=== PATIENT | male | born 1985 | race American Indian/Alaskan Native ===

== ENCOUNTER 2021-01-03 18:50 | Emergency (ER) | payer SELFPAY ==
[2021-01-03] MEDS ORDERED: Ondansetron 4 MG Tab.DIS PO ONE (18:51)
[2021-01-03 19:38] VITALS: BP 117/92; PULSE 88
[2021-01-03] MEDS ORDERED: diphenhydrAMINE 50 MG/ML SDV IVPUSH ONE (20:40)
[2021-01-03] MEDS ORDERED: Ketorolac 30 MG/ML SDV IVPUSH ONE (20:40)
[2021-01-03] MEDS ORDERED: Ondansetron 4 MG/2 ML SDV IVPUSH ONE (20:41)
[2021-01-03] MEDS ORDERED: Sodium Chloride 0.9% 1,000 ML IV ONE (20:44)
--- NOTE | 2021-01-03 20:53 | EDM.PDOC ---
<YuePernell - Last Filed: 01/03/21 20:47> ED HPI GENERAL MEDICAL PROBLEM - General Chief Complaint: Headache Stated Complaint: MIGRAINE, Time Seen by Provider: 01/03/21 20:15 Source of Information: Reports: Patient History Limitations: Reports: No Limitations - History of Present Illness INITIAL COMMENTS - FREE TEXT/NARRATIVE: Patient is a 35 yo male that presents to the ED for 1 day history of headache. Patient reports a 8/10 frontal headache that started last night. No inciting event of trauma. Patient took some ibuprofen and tylenol which provided some relief and he was able to fall asleep around 0300 this morning. Headache returned when he woke up, tried more ibuprofen and tylenol and then presented to the ED when he could no longer take the pain. Associated with some nausea and vomiting when he tried to eat. Photophobia present. No history of migraines. He smokes cigarettes and marijuana. Occasional alcohol use, he had 3 beers last nig ht. He has no other complaints. Denies fever, chest pain, SOB, abdominal pain, radiating pain, numbness/tingling, paresthesias, or changes in bowel/bladder. 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 [No Known Home Meds] 10/10/14 [History] Past Medical History - Past Health History Medical/Surgical History: Denies Medical/Surgical History Respiratory History: Reports: Other (See Below) Other Respiratory History: deflated lung with chest tube - Infectious Disease History Infectious Disease History: Reports: Hepatitis C Social & Family History - Tobacco Use Tobacco Use Status *Q: Current Every Day Tobacco User Years of Tobacco use: 5 Packs/Tins Daily: 0.3 Second Hand Smoke Exposure: Yes - Caffeine Use Caffeine Use: Reports: Coffee, Soda - Alcohol Use Alcohol Use History: Yes - Recreational Drug Use Recreational Drug Use: No - Living Situation & Occupation Living situation: Reports: with Family Occupation: Employed ED ROS GENERAL - Review of Systems Review Of Systems: See Below Constitutional: Reports: Chills HEENT: Reports: No Symptoms Respiratory: Reports: No Symptoms Cardiovascular: Reports: No Symptoms Endocrine: Reports: No Symptoms GI/Abdominal: Reports: Vomiting : Reports: No Symptoms Musculoskeletal: Reports: No Symptoms Skin: Reports: No Symptoms Neurological: Reports: Headache Psychiatric: Reports: No Symptoms Hematologic/Lymphatic: Reports: No Symptoms - Physical Exam Exam: See Below Exam Limited By: No Limitations General Appearance: Alert, Moderate Distress Ears: Normal External Exam, Hearing Grossly Normal Nose: Normal Inspection, Normal Mucosa, No Blood Throat/Mouth: Normal Inspection, Normal Lips, Normal Teeth, Normal Gums, Normal Oropharynx, Normal Voice, No Airway Compromise Head Exam: Atraumatic, Normocephalic Neck: Normal Inspection, Supple, Non-Tender, Full Range of Motion Respiratory/Chest: No Respiratory Distress, Lungs Clear, Normal Breath Sounds, No Accessory Muscle Use, Chest Non-Tender Cardiovascular: Normal Peripheral Pulses, Regular Rate, Rhythm, No Edema, No Gallop, No JVD, No Murmur, No Rub GI/Abdominal: Normal Bowel Sounds, Soft, Non-Tender, No Organomegaly, No Distention, No Abnormal Bruit, No Mass Neuro Exam (Abbreviated): Alert, Oriented, Normal Cognition, No Motor/Sensory Deficits Extremities: Normal Inspection, Normal Range of Motion, Non-Tender, No Pedal Edema, Normal Capillary Refill Skin Exam: Warm, Dry, Intact, Normal Color Departure - Departure Disposition: Home, Self-Care 01 Clinical Impression: Headache Qualifiers: Headache type: unspecified Headache chronicity pattern: acute headache Intractability: not intractable Qualified Code(s): R51.9 - Headache, unspecified - Discharge Information Instructions: General Headache Without Cause, [id number] Forms: ED Department Discharge Additional Instructions: rest increase fluids avoid heat for prolonged periods tylenol 650mg alternate with ibuprofen 600mg every 4 hours as needed for discomfort follow up if sypmptoms worsen, weakness confusion zofran 4mg )DT one every 6 hours as needed for nausea #2 Sepsis Event Note (ED) - Evaluation Sepsis Screening Result: No Definite Risk <Mckayla Salas - Last Filed: 01/04/21 04:08> - Physical Exam Psychiatric: Flat Affect Course - Vital Signs Last Recorded V/S: Last Vital Signs Temp 96.2 F L 01/03/21 19:29 Pulse 88 01/03/21 19:29 Resp 20 01/03/21 19:29 BP 117/92 H 01/03/21 19:29 Pulse Ox 100 01/03/21 19:29 - Orders/Labs/Meds Orders: Active Orders 24 hr Category Date Time Status LYME DISEASE AB TOTAL IG EIA [REF] Stat Lab 01/03/21 20:45 Received [facility] [REF] Stat Lab 01/03/21 20:45 Received Labs: Laboratory Tests 01/03/21 01/03/21 Range/Units 20:45 20:45 WBC 15.4 H (5.0-10.0) 10^3/uL RBC 5.14 (4.6-6.2) 10^6/uL Hgb 15.7 (14.0-18.0) g/dL Hct 46.1 (40.0-54.0) % MCV 89.7 D (80-100) fL MCH 30.5 (27.0-34.0) pg MCHC 34.1 (33.0-35.0) g/dL Plt Count 302 (150-450) 10^3/uL Neut % (Auto) 87.2 H (42.2-75.2) % Lymph % (Auto) 6.6 L (20.5-50.1) % Giles % (Auto) 6.0 (2-8) % Eos % (Auto) 0.1 L (1.0-3.0) % Baso % (Auto) 0.1 (0.0-1.0) % Sodium 143 (136-145) mmol/L Potassium 4.0 (3.5-5.1) mmol/L Chloride 105 (98-107) mmol/L Carbon Dioxide 24 (21-32) mmol/L Anion Gap 18.0 H (7-13) mEq/L BUN 13 (7-18) mg/dL Creatinine 1.27 (0.70-1.30) mg/dL Est Cr Clr Drug Dosing 79.29 mL/min Estimated GFR (MDRD) > 60 BUN/Creatinine Ratio 10.2 (No establ ref range) Glucose 123 H (70-99) mg/dL Calcium 9.5 (8.5-10.1) mg/dL Total Bilirubin 1.1 H (0.2-1.0) mg/dL AST 26 (15-37) U/L ALT 47 (16-63) U/L Alkaline Phosphatase 76 (46-116) U/L Total Protein 8.2 (6.4-8.2) g/dL Albumin 3.9 (3.4-5.0) g/dL Globulin 4.3 Albumin/Globulin Ratio 0.9 Meds: Medications Discontinued Medications Generic Name Dose Route Start Last Admin Trade Name Rupert PRN Reason Stop Dose Admin Diphenhydramine HCl 50 mg 01/03/21 20:40 01/03/21 20:52 Diphenhydramine 50 Mg/Ml Sdv IVPUSH 01/03/21 20:41 50 mg ONETIME ONE Administration Sodium Chloride 1,000 mls @ 9,999 mls/hr 01/03/21 20:44 01/03/21 20:53 Normal Saline IV 01/03/21 20:49 9,999 mls/hr .BOLUS ONE Administration Ketorolac Tromethamine 30 mg 01/03/21 20:40 01/03/21 20:51 Ketorolac 30 Mg/Ml Sdv IVPUSH 01/03/21 20:41 30 mg ONETIME ONE Administration Ondansetron HCl 4 mg 01/03/21 20:41 01/03/21 20:51 Ondansetron 4 Mg/2 Ml Sdv IVPUSH 01/03/21 20:42 4 mg ONETIME ONE Administration Ondansetron HCl Confirm 01/03/21 22:30 01/03/21 22:34 Ondansetron 4 Mg Tab.Dis Administered 01/03/21 22:31 Not Given Dose 8 mg .ROUTE .STK-MED ONE - Re-Assessments/Exams Free Text/Narrative Re-Assessment/Exam: 01/03/21 22:15 I have examined the patient. I have discussed findings and treatment plan with resident. I agree with assessment plan and documentation. Departure - Departure Time of Disposition: 22:17 Condition: Good - Discharge Information *PRESCRIPTION DRUG MONITORING PROGRAM REVIEWED*: No *COPY OF PRESCRIPTION DRUG MONITORING REPORT IN PATIENT JIMMY: No Sepsis Event Note (ED) - Focused Exam Vital Signs: Vital Signs Temp Pulse Resp BP Pulse Ox 01/03/21 19:29 96.2 F L 88 20 117/92 H 100 - My Orders Last 24 Hours: My Active Orders 01/03/21 20:45 LYME DISEASE AB TOTAL IG EIA [REF] Stat [facility] [REF] Stat - Assessment/Plan Last 24 Hours: My Active Orders 01/03/21 20:45 LYME DISEASE AB TOTAL IG EIA [REF] Stat [facility] [REF] Stat
[2021-01-03 21:14] LABS: CHLORIDE,CL 105 mmol/L (98-107); SODIUM,NA 143 mmol/L (136-145)
--- NOTE | 2021-01-03 21:39 | CT ---
PROCEDURE INFORMATION: Exam: CT Head Without Contrast Exam date and time: 01/03/2021 9:11 PM Age: 35 years old Clinical indication: Pain; Headache; Migraine; Aura effect not specified TECHNIQUE: Imaging protocol: Computed tomography of the head without contrast. Radiation optimization: All CT scans at this facility use at least one of these dose optimization techniques: automated exposure control; mA and/or kV adjustment per patient size (includes targeted exams where dose is matched to clinical indication); or iterative reconstruction. COMPARISON: No relevant prior studies available. FINDINGS: Brain: No evidence for acute transcortical infarct. No mass effect or midline shift. No extra-axial collection. No acute intracranial hemorrhage. Basal cisterns are patent. Cerebral ventricles: No ventriculomegaly. Paranasal sinuses: Visualized sinuses are unremarkable. No fluid levels. Mastoid air cells: Visualized mastoid air cells are well aerated. Bones/joints: Unremarkable. No acute fracture. Soft tissues: Unremarkable. IMPRESSION: No hydrocephalus, acute intracranial hemorrhage, or mass effect.
[2021-01-03] MEDS ORDERED: Ondansetron 4 MG Tab.DIS ONE (22:30)
== END 2021-01-03 22:38 | disposition home or self-care (01) ==
LOC: DL.ED 18:50
DX: R51.9 Headache, unspecified (principal); Z72.0 Tobacco use
CPT/HCPCS: 36415; 70450; 80053; 85025; 86618; 86788; 93005; 96374; 96375; 99284; A9270; J1200; J1885; J2405; J7030; 99283

== ENCOUNTER 2023-11-18 13:45 | Inpatient (IN) | payer MEDICAID ==
[2023-11-18] MEDS ORDERED: LORazepam 2 MG/ML SDV IVPUSH PRN (13:57)
[2023-11-18] MEDS: GI Cocktail Oral Solution 30 ML PO ONE (14:03)
[2023-11-18 14:05] LABS: BASOPHILS PERCENT AUTO 0.1 % (0.0-1.0); EOSINOPHILS PERCENT AUTO 0.1 % (1.0-3.0); HEMATOCRIT 49.8 % (40.0-54.0); HEMOGLOBIN 16.9 g/dL (14.0-18.0); LYMPHOCYTES PERCENT AUTO 10.4 % (20.5-50.1); MEAN CORPUSCULAR HEMOGLOBIN 30.9 pg (27.0-34.0); MEAN CORPUSCULAR HGB CONC 33.9 g/dL (33.0-35.0); MONOCYTES PERCENT AUTO 6.5 % (2-8); NEUTROPHILS PERCENT AUTO 82.9 % (42.2-75.2); PLATELET COUNT,PLT 258 10^3/uL (150-450); RED BLOOD CELL COUNT 5.47 10^6/uL (4.6-6.2); WHITE BLOOD CELL COUNT,WBC 15.5 10^3/uL (5.0-10.0)
[2023-11-18] MEDS: Aspirin 81 MG Tab.Chew PO ONE (14:07)
[2023-11-18] MEDS: Haloperidol Lactate 5 MG/ML SDV IM ONE (14:08)
[2023-11-18] MEDS: Sodium Chloride 0.9% 10 ML Syringe FLUSH PRN (14:12)
[2023-11-18 14:20] LABS: INR 0.9 (0.9-1.2); PROTHROMBIN TIME 9.4 SEC (9.0-12.0)
[2023-11-18 14:27] LABS: A/G RATIO 0.9; ALANINE AMINOTRANSFERASE,ALT 224 U/L (16-63); ALKALINE PHOSPHATASE 87 U/L (46-116); ANION GAP 14.9 mEq/L (7-13); ASPARTATE AMNIOTRANSFERASE,AST 318 U/L (15-37); BILIRUBIN TOTAL 1.7 mg/dL (0.2-1.0); BLOOD UREA NITROGEN,BUN 13 mg/dL (7-18); CALCIUM 9.5 mg/dL (8.5-10.1); CARBON DIOXIDE,CO2 28 mmol/L (21-32); CHLORIDE,CL 103 mmol/L (98-107); CREATININE 1.08 mg/dL (0.70-1.30); ESTIMATED GFR 91 mL/min (>=60); GLUCOSE RANDOM 119 mg/dL (70-99); POTASSIUM,K 3.9 mmol/L (3.5-5.1); PROTEIN TOTAL,TP 8.3 g/dL (6.4-8.2); SODIUM,NA 142 mmol/L (136-145)
[2023-11-18 15:11] LABS: APPEARANCE,URINE CLEAR (CLEAR); BILIRUBIN,URINE NEGATIVE (NEGATIVE); COLOR,URINE YELLOW (YELLOW); GLUCOSE,URINE NEGATIVE (NEGATIVE); KETONES,URINE NEGATIVE (NEGATIVE); LEUKOCYTE ESTERASE,URINE NEGATIVE (NEGATIVE); NITRITE,URINE NEGATIVE (NEGATIVE); OCCULT BLOOD,URINE NEGATIVE (NEGATIVE); PH,URINE 8.5 (5.0-9.0); PROTEIN,URINE NEGATIVE (NEGATIVE)
[2023-11-18 15:14] LABS: AMPHETAMINES,URINE NEGATIVE (NEGATIVE); BARBITURATES,URINE NEGATIVE (NEGATIVE); BENZODIAZEPINE,URINE NEGATIVE (NEGATIVE); MDMA (ECSTASY), URINE NEGATIVE (NEGATIVE); METHADONE,URINE NEGATIVE (NEGATIVE); METHAMPHETAMINES,URINE NEGATIVE (NEGATIVE); OPIATES,URINE NEGATIVE (NEGATIVE); OXYCODONE,URINE NEGATIVE (NEGATIVE); PHENCYCLIDINE,URINE NEGATIVE (NEGATIVE); TCA,URINE NEGATIVE (NEGATIVE)
[2023-11-18] MEDS: Iopamidol 755 Mg/ML 100 ML Bottle IVPUSH ONE (15:24)
[2023-11-18] MEDS: HYDROmorphone 1 MG/ML Syringe IVPUSH ONE (17:14)
[2023-11-18 17:54] LABS: LIPASE > 250 U/L (16-77)
[2023-11-18 17:55] LABS: ETHANOL BLOOD MEDICAL < 3 mg/dL (0)
[2023-11-18] MEDS ORDERED: Ondansetron 4 MG/2 ML SDV IVPUSH PRN (18:13)
[2023-11-18] MEDS ORDERED: Albuterol/Ipratropium 3.0-0.5 MG/3 ML Neb Soln NEB PRN (18:13)
[2023-11-18] MEDS ORDERED: Acetaminophen 325 MG Tab PO PRN (18:13)
[2023-11-18] MEDS ORDERED: Temazepam 15 MG Cap PO PRN (18:13)
[2023-11-18] MEDS: Sodium Chloride 0.9% 1,000 ML IV ONE (18:17)
[2023-11-18] MEDS: cefTRIAXone 1 GM Vial IVPUSH ONE (18:17)
[2023-11-18] MEDS ORDERED: fentaNYL 100 MCG/2 ML SDV IVPUSH PRN (18:18)
[2023-11-18] MEDS ORDERED: Naloxone 2 MG/2 ML Syringe IVPUSH PRN (18:18)
[2023-11-18] MEDS ORDERED: Ibuprofen 600 MG Tab PO PRN (18:20)
[2023-11-18] MEDS ORDERED: Haloperidol Lactate 5 MG/ML SDV IVPUSH PRN (18:27)
[2023-11-18] MEDS ORDERED: GI Cocktail Oral Solution 30 ML PO PRN (18:46)
[2023-11-18 19:28] LABS: CHOLESTEROL HDL 46 mg/dL (40-59); CHOLESTEROL LDL CALCULATED 96 mg/dL (0-100); CHOLESTEROL TOTAL 152 mg/dL (0-199); LACTATE DEHYDROGENASE,LDH 212 U/L (85-227); TRIGLYCERIDES 48 mg/dL (0-149)
[2023-11-18] MEDS: Pantoprazole 40 MG Vial IVPUSH ONE (20:18)
[2023-11-18] MEDS: Scopalamine 1mg/3day Transdermal Patch TOP ONE (20:24)
[2023-11-18] MEDS: Saccharomyces Boulardii (Probiotic) 250 MG Cap PO SCH (20:24)
[2023-11-18] MEDS: MVI, Adult with Vitamin K 10 ML, Folic Acid 1 MG, Thiamine 100 MG in Lactated Ringers 1... IV ONE (20:28)
[2023-11-18] MEDS: Lactated Ringers 1,000 ML IV ONE (20:28)
[2023-11-18] MEDS: Temazepam 15 MG Cap PO PRN (22:02)
[2023-11-18] MEDS: oxyCODONE 5 MG Tab PO PRN (22:02)
[2023-11-19] MEDS: Ampicillin/Sulbactam Na 3 GM in Sodium Chloride 0.9% 100 ML IV SCH (00:14)
[2023-11-19] MEDS: Dextrose 5%-0.9% NaCl 1,000 ML IV SCH (02:30)
[2023-11-19] MEDS: Pantoprazole 40 MG Vial IVPUSH SCH (05:16)
[2023-11-19 06:39] LABS: BASOPHILS PERCENT AUTO 0.1 % (0.0-1.0); EOSINOPHILS PERCENT AUTO 0.1 % (1.0-3.0); HEMATOCRIT 44.1 % (40.0-54.0); HEMOGLOBIN 14.7 g/dL (14.0-18.0); LYMPHOCYTES PERCENT AUTO 14.1 % (20.5-50.1); MEAN CORPUSCULAR HEMOGLOBIN 30.7 pg (27.0-34.0); MEAN CORPUSCULAR HGB CONC 33.3 g/dL (33.0-35.0); MEAN CORPUSCULAR VOLUME 92.1 fL (80-100); MONOCYTES PERCENT AUTO 7.1 % (2-8); NEUTROPHILS PERCENT AUTO 78.6 % (42.2-75.2); PLATELET COUNT,PLT 201 10^3/uL (150-450); RED BLOOD CELL COUNT 4.79 10^6/uL (4.6-6.2)
[2023-11-19 07:04] LABS: ANION GAP 10.7 mEq/L (7-13); BILIRUBIN TOTAL 0.9 mg/dL (0.2-1.0); C-REACTIVE PROTEIN 0.94 ng/dL (<=0.50); CALCIUM 7.8 mg/dL (8.5-10.1); CREATININE 0.89 mg/dL (0.70-1.30); EST CRCL DRUG DOSING (CG) 109.94 mL/min; MAGNESIUM 1.7 mg/dL (1.8-2.4); POTASSIUM,K 3.7 mmol/L (3.5-5.1); PROTEIN TOTAL,TP 6.5 g/dL (6.4-8.2)
[2023-11-19 07:05] LABS: A/G RATIO 0.86
[2023-11-19] MEDS: Magnesium Sulfate/Water 2 GM in Premix Bag 1 BAG IV ONE (07:26)
[2023-11-19] MEDS: Capsaicin 0.025% Crm 60 GM Tube TOP SCH (10:41)
[2023-11-19] MEDS: Haloperidol Lactate 5 MG/ML SDV IVPUSH SCH (13:48)
[2023-11-20 06:17] LABS: BASOPHILS PERCENT AUTO 0.2 % (0.0-1.0); EOSINOPHILS PERCENT AUTO 0.7 % (1.0-3.0); HEMATOCRIT 44.4 % (40.0-54.0); HEMOGLOBIN 14.8 g/dL (14.0-18.0); LYMPHOCYTES PERCENT AUTO 22.3 % (20.5-50.1); MEAN CORPUSCULAR HEMOGLOBIN 30.6 pg (27.0-34.0); MEAN CORPUSCULAR HGB CONC 33.3 g/dL (33.0-35.0); MEAN CORPUSCULAR VOLUME 91.7 fL (80-100); NEUTROPHILS PERCENT AUTO 66.8 % (42.2-75.2); PLATELET COUNT,PLT 187 10^3/uL (150-450); RED BLOOD CELL COUNT 4.84 10^6/uL (4.6-6.2); WHITE BLOOD CELL COUNT,WBC 10.6 10^3/uL (5.0-10.0)
[2023-11-20 06:55] LABS: ALBUMIN 2.8 g/dL (3.4-5.0); ANION GAP 10.8 mEq/L (7-13); BILIRUBIN TOTAL 0.8 mg/dL (0.2-1.0); BUN/CREATININE RATIO 7.1 (No establ ref range); C-REACTIVE PROTEIN 5.82 ng/dL (<=0.50); CREATININE 0.84 mg/dL (0.70-1.30); EST CRCL DRUG DOSING (CG) 116.49 mL/min; MAGNESIUM 1.8 mg/dL (1.8-2.4); POTASSIUM,K 3.8 mmol/L (3.5-5.1); PROTEIN TOTAL,TP 6.6 g/dL (6.4-8.2)
[2023-11-20 06:56] LABS: A/G RATIO 0.74
[2023-11-20 16:58] VITALS: BP 99/56; PULSE 61
[2023-11-21] MEDS ORDERED: Remove Patch SCOPE PATCH TRDERM ONE (18:30)
== END 2023-11-20 17:30 | disposition home or self-care (01) | DRG 439 ==
LOC: DL.ED 13:45 → DL.MS 18:10
PROVIDERS: ADMIT Internal Medicine; ATTEND Internal Medicine
DX: K85.10 Biliary acute pancreatitis without necrosis or infection (principal); E87.20 Acidosis, unspecified; R18.8 Other ascites; F17.210 Nicotine dependence, cigarettes, uncomplicated; K86.89 Other specified diseases of pancreas; K21.9 Gastro-esophageal reflux disease without esophagitis; G47.00 Insomnia, unspecified; R73.9 Hyperglycemia, unspecified; D72.829 Elevated white blood cell count, unspecified; E80.6 Other disorders of bilirubin metabolism; R74.01 Elevation of levels of liver transaminase levels; F15.10 Other stimulant abuse, uncomplicated; F12.90 Cannabis use, unspecified, uncomplicated; R00.1 Bradycardia, unspecified; E83.42 Hypomagnesemia; Z79.899 Other long term (current) drug therapy
CPT/HCPCS: 36415; 71045; 71275; 76705; 80053; 80061; 80305-QW; 80307; 81003; 83605; 83615; 83690; 83735; 84484; 85025; 85379; 85610; 86140; 87040; 93005; 93010; 96372; 96374; 99284; 99285-25; A9270-GY; C9113; J0295; J0696; J1170; J1630; J3411; J3475; J3490; J7030; J7042; J7120; Q9967